=== PATIENT | female | born 1975 | race African-American/Black ===

== ENCOUNTER 2025-06-02 16:20 | Emergency (ER) | payer MEDICAID ==
[~2025-06-02] VITALS: Ht 170.2 cm; Wt 92.0 kg
[2025-06-02] MEDS: MIDAZOLAM HCL 5 MG/ML-1ML VIAL IM ONE (16:30)
[2025-06-02 16:44] VITALS: PULSE 102; RESP 32; O2SAT 87
[2025-06-02 16:58] LABS: Hematocrit 38.1 % (36.0-46.0); Hemoglobin 12.6 g/dL (12.2-16.2); Mean Corpuscular Hemoglobin 30.7 pg (28.0-32.0); Mean Corpuscular Volume 92.5 fL (80.0-100.0); Nucleated Red Blood Cells % 0.1 %
[2025-06-02 17:09] VITALS: TEMP 98
[2025-06-02 17:11] LABS: Anion Gap 16 (5-15); Carbon Dioxide 20 mmol/L (20-31)
[2025-06-02 17:12] LABS: Calcium 9.4 mg/dL (8.7-10.4)
[2025-06-02 17:13] LABS: Chloride 114 mmol/L (98-107); Potassium 2.9 mmol/L (3.5-5.1); Sodium 150 mmol/L (136-145)
[2025-06-02 17:17] LABS: BUN/Creatinine Ratio 3.3 (10.0-20.0); Blood Urea Nitrogen 8 mg/dL (9-23); Glucose 156 mg/dL (74-106)
[2025-06-02 17:18] LABS: Acetaminophen < 2.0 UG/ML (10.0-20.0); Salicylate < 3.0 mg/dL (-30)
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
--- NOTE | 2025-06-02 18:49 | ECG ---
[facility] Test Date: 2025-06-02 Test Time: 16:59:06 Pat Name: OBED WISE Department: Room: Gender: F Capacity Manager: DORCAS : [id number] Requested By: ARAM MOYA Order Number: [id number] Reading MD: Jermaine Dunaway Measurements Intervals [place] Rate: 97 P: 64 MA: 148 QRS: 46 QRSD: 96 T: 5 QT: 381 QTc: 484 Interpretive Statements Sinus rhythm Probable left atrial enlargement RSR' in V1 or V2, right VCD or RVH Electronically Signed On 06-06-2025 10:21:36 PDT by Jermaine Dunaway Please click the below link to view image of tracing.
[2025-06-02 19:52] VITALS: BP 119/52; PULSE 65; RESP 17; O2SAT 91
[2025-06-02] MEDS: POTASSIUM CHL 20 Meq TABLET PO ONE (19:52)
== END 2025-06-02 19:57 ==
LOC: ER 16:20 → EDBD 16:20 → ER 19:57
DX: T75.4XXA Electrocution, initial encounter (principal); E86.0 Dehydration; E87.6 Hypokalemia; Z79.899 Other long term (current) drug therapy; W86.8XXA Exposure to other electric current, initial encounter; Y93.89 Activity, other specified; Y92.89 Other specified places as the place of occurrence of the external cause; Y99.8 Other external cause status
CPT/HCPCS: 36415; 80048; 80320; 80329; 85025; 93005; 96372; 99284; J2250